=== PATIENT | female | born 1985 | race Caucasian/White ===

== ENCOUNTER 2017-07-19 21:37 | Observation (INO) | payer MEDICAID ==
[~2017-07-19 21:37] MED LIST: PRENTAB28 PO
[2017-07-19] MEDS ORDERED: LACTATED RINGER'S 1,000 ML IV ONE (22:21)
[2017-07-19] MEDS ORDERED: TERBUTALINE SULFATE 1 MG/ML 1ML VIAL SC SCH (22:30)
[2017-07-19] MEDS ORDERED: SODIUM CITR/CITRIC ACID ORAL SOLN 30 ML ONE (22:33)
[2017-07-19] MEDS ORDERED: SODIUM CITR/CITRIC ACID ORAL SOLN 30 ML PO PRN (22:45)
== END 2017-07-19 23:39 | disposition home or self-care (01) | DRG 566 ==
LOC: MERGE 21:37 → LDRP 21:37
PROVIDERS: ADMIT Obstetrics & Gynecology; ATTEND Obstetrics & Gynecology
DX: O21.2 Late vomiting of pregnancy (principal); Z3A.25 25 weeks gestation of pregnancy
CPT/HCPCS: 59025; 81002; G0378

== ENCOUNTER 2017-09-17 12:45 | Observation (INO) | payer MEDICAID ==
[2017-09-17] MEDS ORDERED: HYDR250I6 IM (13:06)
[2017-09-17] MEDS ORDERED: PREN-153 OR (13:06)
[2017-09-17] MEDS ORDERED: FERR-20 PO (13:06)
[2017-09-17] MEDS ORDERED: FAMO10TA48 PO (13:06)
== END 2017-09-17 13:38 | disposition home or self-care (01) | DRG 563 ==
LOC: MERGE 12:45 → LDRP 12:45
PROVIDERS: ADMIT Specialist; ATTEND Specialist
DX: O60.00 Preterm labor without delivery, unspecified trimester (principal); O21.9 Vomiting of pregnancy, unspecified; O26.899 Other specified pregnancy related conditions, unspecified trimester; R10.9 Unspecified abdominal pain; Z3A.00 Weeks of gestation of pregnancy not specified
CPT/HCPCS: 59025; 81002; G0378

== ENCOUNTER 2017-09-24 12:20 | Observation (INO) | payer MEDICAID ==
[~2017-09-24 12:20] MED LIST changes: +FAMO10TA48 PO; +FERR-20 PO; +HYDR250I6 IM; +PREN-153 OR
== END 2017-09-24 13:20 | disposition home or self-care (01) | DRG 563 ==
LOC: LDRP 12:20
PROVIDERS: ADMIT Obstetrics & Gynecology; ATTEND Obstetrics & Gynecology
DX: O60.00 Preterm labor without delivery, unspecified trimester (principal); O21.9 Vomiting of pregnancy, unspecified; Z3A.00 Weeks of gestation of pregnancy not specified
CPT/HCPCS: 59025; 81002; G0378

== ENCOUNTER 2017-10-01 12:50 | Observation (INO) | payer MEDICAID ==
[2017-10-01] MEDS ORDERED: LACTATED RINGER'S 1,000 ML IV ONE (13:45)
[2017-10-01] MEDS ORDERED: TERBUTALINE SULFATE 1 MG/ML 1ML VIAL SC SCH (13:45)
[2017-10-01] MEDS ORDERED: NIF10C GT (16:24)
== END 2017-10-01 15:40 | disposition home or self-care (01) | DRG 563 ==
LOC: LDRP 12:50
PROVIDERS: ADMIT Specialist; ATTEND Specialist
DX: O60.03 Preterm labor without delivery, third trimester (principal); O26.893 Other specified pregnancy related conditions, third trimester; N89.8 Other specified noninflammatory disorders of vagina; O21.2 Late vomiting of pregnancy; R10.9 Unspecified abdominal pain; M54.9 Dorsalgia, unspecified; Z3A.35 35 weeks gestation of pregnancy
CPT/HCPCS: 59025; 81002; 96372; G0378; J3105; 96366

== ENCOUNTER 2017-10-08 12:14 | Observation (INO) | payer MEDICAID ==
[~2017-10-08 12:14] MED LIST changes: -HYDR250I6 IM; +NIF10C GT
== END 2017-10-08 13:05 | disposition home or self-care (01) | DRG 563 ==
LOC: LDRP 12:14
PROVIDERS: ADMIT Obstetrics & Gynecology; ATTEND Obstetrics & Gynecology
DX: O60.03 Preterm labor without delivery, third trimester (principal); O21.2 Late vomiting of pregnancy; Z3A.36 36 weeks gestation of pregnancy
CPT/HCPCS: 59025; 81002; G0378

== ENCOUNTER 2017-10-15 12:05 | Observation (INO) | payer MEDICAID | END 2017-10-15 13:15 | disposition home or self-care (01) | DRG 566 | LOC: LDRP 12:05 | PROVIDERS: ADMIT Obstetrics & Gynecology; ATTEND Obstetrics & Gynecology | DX: O26.893 Other specified pregnancy related conditions, third trimester (principal); O62.9 Abnormality of forces of labor, unspecified; R10.9 Unspecified abdominal pain; O21.2 Late vomiting of pregnancy; Z3A.37 37 weeks gestation of pregnancy | CPT/HCPCS: 59025; 81002; G0378 ==

== ENCOUNTER 2017-10-19 09:40 | Observation (INO) | payer MEDICAID ==
[2017-10-19 11:04] LABS: Basophils # (auto) 0 uL; Basophils % (auto) 0.4 % (0.0-2.0); Eosinophils # (auto) 0.1 uL; Eosinophils % (auto) 1.4 % (0.0-7.0); Hematocrit 35.4 % (36.0-46.0); Hemoglobin 11.9 g/dL (12.2-16.2); Lymphocytes # (auto) 1.3 uL; Lymphocytes % (auto) 18.8 % (10.0-50.0); Mean Corpuscular Hemoglobin 29.3 pg (28.0-32.0); Mean Corpuscular Hgb Conc. 33.6 g/dL (32.0-36.0); Mean Corpuscular Volume 87.4 fL (80.0-100.0); Monocytes # (auto) 0.5 uL; Monocytes % (auto) 6.9 % (0.0-12.0); Neutrophils # (auto) 5.1 uL; Neutrophils % (auto) 72.5 % (37.0-80.0); Nucleated Red Blood Cells % 0.2 %; Platelet Count (auto) 160 10^3/uL (140-450); Red Blood Cells 4.05 10^6/uL (4.0-5.20)
[2017-10-20 04:08] LABS: RPR Non Reactive (Non Reactive)
== END 2017-10-19 10:30 | disposition home or self-care (01) | DRG 566 ==
LOC: LDRP 09:40
PROVIDERS: ADMIT Obstetrics & Gynecology; ATTEND Obstetrics & Gynecology
DX: O21.2 Late vomiting of pregnancy (principal); Z3A.38 38 weeks gestation of pregnancy
CPT/HCPCS: 36415; 59025; 81002; 85025; 86592; G0378

== ENCOUNTER 2017-10-21 10:30 | Observation (INO) | payer MEDICAID | END 2017-10-21 11:50 | disposition home or self-care (01) | DRG 566 | LOC: LDRP 10:30 | PROVIDERS: ADMIT Obstetrics & Gynecology; ATTEND Obstetrics & Gynecology | DX: O26.893 Other specified pregnancy related conditions, third trimester (principal); O62.9 Abnormality of forces of labor, unspecified; R10.9 Unspecified abdominal pain; O21.2 Late vomiting of pregnancy; Z3A.38 38 weeks gestation of pregnancy | CPT/HCPCS: 59025; 81002; G0378 ==